=== PATIENT | male | born 2005 | race Caucasian/White ===

== ENCOUNTER 2023-11-11 14:06 | Emergency (ER) | payer MEDICAID ==
[~2023-11-11] VITALS: Ht 188 cm; Wt 117.9 kg
[2023-11-11] MEDS: LIDOCAINE HCL 2% 20 ML VIAL TP ONE (15:45)
[2023-11-11] MEDS ORDERED: SULF1TAB48 PO (17:20)
[2023-11-11 18:01] VITALS: BP 129/77; TEMP 98.5; O2SAT 99
== END 2023-11-11 18:00 | disposition home or self-care (01) ==
LOC: ER 14:06
DX: L02.415 Cutaneous abscess of right lower limb (principal); Z79.899 Other long term (current) drug therapy; Z60.2 Problems related to living alone
CPT/HCPCS: A4606; A4663

== ENCOUNTER 2024-08-02 21:53 | Emergency (ER) | payer MEDICAID, OTHER ==
[~2024-08-02] VITALS: Ht 188 cm; Wt 108.9 kg
[~2024-08-02 21:53] MED LIST: SULF1TAB48 PO
[2024-08-02 22:02] VITALS: O2SAT 98
[2024-08-02] MEDS ORDERED: ACETAMINOPHEN 500 MG TABLET ONE (22:35)
[2024-08-02] MEDS ORDERED: METOCLOPRAMIDE HCL 10 MG TABLET ONE (22:36)
[2024-08-02] MEDS ORDERED: FAMOTIDINE 20 MG TABLET ONE (22:36)
[2024-08-02] MEDS: FAMOTIDINE 20 MG TABLET PO ONE (22:50)
[2024-08-02] MEDS: METOCLOPRAMIDE HCL 10 MG TABLET PO ONE (22:50)
[2024-08-02] MEDS: ACETAMINOPHEN 500 MG TABLET PO ONE (22:50)
[2024-08-02 22:58] LABS: CALCIUM 9.2 mg/dL (8.5-10.1); POTASSIUM 3.7 mmol/L (3.5-5.1); TOTAL PROTEIN, SERUM 8.1 g/dL (6.4-8.2)
[2024-08-02 23:39] LABS: BASOPHILS # (AUTO) 0.1 K/UL (0.0-0.2); BASOPHILS % (AUTO) 1.2 % (0.0-2.0); EOSINOPHILS # (AUTO) 0.1 K/uL (0.0-0.7); EOSINOPHILS % (AUTO) 1.2 % (0.0-7.0); HEMATOCRIT 43.4 % (36.7-47.1); LYMPHOCYTES # (AUTO) 0.8 K/uL (0.8-4.8); LYMPHOCYTES % (AUTO) 9.4 % (20.5-51.5); MEAN CORPUSCULAR HEMOGLOBIN 29.8 uug (23.8-33.4); MEAN CORPUSCULAR HGB CONC 34 g/dL (32.5-36.3); MEAN CORPUSCULAR VOLUME 86.7 fL (73.0-96.2); MONOCYTES # (AUTO) 0.5 K/uL (0.1-1.30); MONOCYTES % (AUTO) 5.8 % (0.0-11.0); NEUTROPHILS # (AUTO) 7.3 K/uL (1.8-8.9); NEUTROPHILS % (AUTO) 82.4 % (38.5-71.5); PLATELET COUNT (AUTO) 234 K/uL (152-348); RED BLOOD CELL COUNT(AUTO) 5.01 MIL/uL (4.06-5.63); RED CELL DISTRIBUTION WIDTH 12.5 % (12.1-16.2); WHITE BLOOD COUNT (AUTO) 8.9 K/uL (3.6-10.2)
== END 2024-08-03 00:15 | disposition home or self-care (01) ==
LOC: ER 21:54
DX: R51.9 Headache, unspecified (principal); R10.13 Epigastric pain; K29.70 Gastritis, unspecified, without bleeding; E66.9 Obesity, unspecified; R03.0 Elevated blood-pressure reading, without diagnosis of hypertension; Z79.899 Other long term (current) drug therapy; Z68.30 Body mass index [BMI] 30.0-30.9, adult
CPT/HCPCS: 36415; 83690; 85025; A4606; A4663; A9150; J8597